=== PATIENT | male | born 1975 | race Caucasian/White ===

== ENCOUNTER 2017-12-26 07:02 | Emergency (ER) | payer BC ==
--- NOTE | 2017-12-26 07:34 | ERPHSYRPT ---
- History of Present Illness Source: patient, family Exam Limitations: no limitations Patient Subjective Stated Complaint: Patient got up this morning at 0430 and checked blood sugar, which read 289. Patient started driving to work and his vision was blurry and he states he didn't feel good and his left lower back started hurting. Triage Nursing Assessment: Patient ambulates into ER and transfers self to bed. Patient got up this morning at 0430 and checked blood sugar, which read 289. Patient started driving to work and his vision was blurry and he states he didn' t feel good and his left lower back started hurting. Patient states his vision is currently hazy. Patient states his left lower side of back is hurting 10/23. No bruising or abnormalities noted. Patient's blood sugar is 240. Patient recently had medication change last month of changing from Jardiance 25mg to Farsega 10mg, but was causing his lower back to hurt for two weeks so he stopped taking med. Timing/Duration: week(s) (1) Severity: mild Modifying Factors: Improves With: nothing Hx Tetanus, Diphtheria Vaccination/Date Given: Yes Hx Influenza Vaccination/Date Given: No Hx Pneumococcal Vaccination/Date Given: No Immunizations Up to Date: Yes <RAMONA STONER - Last Filed: 12/26/17 07:50> <ALIYAH AVILA - Last Filed: 12/26/17 09:11> - History of Present Illness Time Seen by Provider: 12/26/17 07:29 Physician History: The patient is a 41-year-old male with his complaining that today his vision started to become blurry as he was driving to work. He didn't feel well. His lower back began hurting again. 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 When someone moves in his field of vision, he feels like he is falling. He has diabetes and used to be on Farxiga but stopped taking it because his left back began to hurt. Now since he stopped taking his diabetic medicine, his blood glucose was elevated this morning to 289. 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 His past medical history is significant for diabetes, hypertension, and high cholesterol. (RAMONA STONER) Allergies/Adverse Reactions: Penicillins Allergy (Intermediate, Verified 07/10/13 02:22) Home Medications: Atorvastatin Calcium [Lipitor] 20 mg PO DAILY 12/26/17 [History] Losartan Potassium 50 mg [Cozaar 50 MG] 1 tablet PO DAILY 12/26/17 [ History] - Review of Systems Constitutional: No Fever, No Chills Eyes: No Symptoms Ears, Nose, & Throat: No Symptoms Respiratory: No Cough, No Dyspnea Cardiac: No Chest Pain, No Edema, No Syncope Abdominal/Gastrointestinal: No Abdominal Pain, No Nausea, No Vomiting, No Diarrhea Genitourinary Symptoms: No Dysuria Musculoskeletal: Back Pain Skin: No Rash Neurological: Dizziness Psychological: No Symptoms Endocrine: No Symptoms Hematologic/Lymphatic: No Symptoms Immunological/Allergic: No Symptoms All Other Systems: Reviewed and Negative <RAMONA STONER - Last Filed: 12/26/17 07:50> - Past Medical History Pertinent Past Medical History: No Neurological History: No Pertinent History ENT History: No Pertinent History Cardiac History: No Pertinent History Respiratory History: No Pertinent History Endocrine Medical History: No Pertinent History Musculoskeletal History: No Pertinent History GI Medical History: No Pertinent History History: No Pertinent History Psycho-Social History: No Pertinent History - Past Surgical History Past Surgical History: No Cardiac: No Pertinent History Respiratory: No Pertinent History Gastrointestinal: No Pertinent History Genitourinary: No Pertinent History Musculoskeletal: No Pertinent History Male Surgical History: No Pertinent History - Social History Smoking Status: Current every day smoker How long have you smoked: 30 years Exposure to second hand smoke: Yes Drug Use: none Patient Lives Alone: No Significant Family History: no pertinent family hx <RAMONA STONER - Last Filed: 12/26/17 07:50> - Physical Exam General Appearance: no apparent distress, alert Eye Exam: PERRL/EOMI, eyes nml inspection Ears, Nose, Throat Exam: normal ENT inspection, TMs normal, pharynx normal, moist mucous membranes Neck Exam: normal inspection, non-tender, supple, full range of motion Respiratory Exam: normal breath sounds, lungs clear, No respiratory distress Cardiovascular Exam: regular rate/rhythm, normal heart sounds, normal peripheral pulses Gastrointestinal/Abdomen Exam: soft, normal bowel sounds, No tenderness, No mass Rectal Exam: not done Back Exam: muscle spasm (left lumbar paraspinous) Extremity Exam: normal inspection, normal range of motion, pelvis stable Neurologic Exam: alert, oriented x 3, cooperative, normal mood/affect, nml cerebellar function, nml station & gait, sensation nml, No motor deficits Skin Exam: normal color, warm, dry, No rash Lymphatic Exam: No adenopathy SpO2 Interpretation: normal SpO2: 94 Oxygen Delivery: Room Air <RAMONA STONER - Last Filed: 12/26/17 07:50> - Nursing Vital Signs Nursing Vital Signs: Initial Vital Signs Temperature 97.9 F 12/26/17 07:08 Pulse Rate 81 12/26/17 07:08 Respiratory Rate 19 12/26/17 07:08 Blood Pressure 142/94 12/26/17 07:08 O2 Sat by Pulse Oximetry 94 L 12/26/17 07:08 Pain Scale Pain Intensity [Left Lower 6 Back] Pain Intensity 6 - Course Nursing assessment & vital signs reviewed: Yes EKG Interpreted by Me: RATE (82), Sinus Rhythm, NORMAL AXIS, NORMAL QRS <ALIYAH AVILA - Last Filed: 12/26/17 09:11> Ordered Tests: Active Orders 24 hr Category Date Time Status EKG-ER Only STAT Care 12/26/17 07:34 Active IV Insertion STAT Care 12/26/17 07:34 Active Orthostatic Vital Signs STAT Care 12/26/17 08:57 Active HEAD WITHOUT CONTRAST [CT] Stat Exams 12/26/17 07:35 Completed CBC W DIFF Stat Lab 12/26/17 07:50 Completed CMP Stat Lab 12/26/17 07:50 Completed CULTURE,URINE Stat Lab 12/26/17 08:39 Received LIPASE Stat Lab 12/26/17 07:50 Completed Lactic Acid Stat Lab 12/26/17 07:54 Completed TROPONIN Q3H Lab 12/26/17 07:50 Completed TROPONIN Q3H Lab 12/26/17 10:45 Ordered TROPONIN Q3H Lab 12/26/17 13:45 Ordered TROPONIN Q3H Lab 12/26/17 16:45 Ordered TROPONIN Q3H Lab 12/26/17 19:45 Ordered UA W/ MICROSCOPIC Stat Lab 12/26/17 08:39 Completed Medication Summary Generic Name Dose Route Start Last Admin Trade Name Freq PRN Reason Stop Dose Admin Hydrocodone Bitart/Acetaminophen 1 tab 12/26/17 09:06 [place] 5/325 Mg PO 12/26/17 09:07 STAT ONE Discontinued Medications Generic Name Dose Route Start Last Admin Trade Name Jose Juan PRN Reason Stop Dose Admin Sodium Chloride 1,000 mls @ 999 mls/hr 12/26/17 07:34 12/26/17 09:05 Sodium Chloride 0.9% 1000 Ml IV 12/26/17 08:34 Infused .Q1H1M STA Infusion Sodium Chloride Confirm 12/26/17 07:43 Sodium Chloride 0.9% 1000 Ml Administered 12/26/17 07:44 Dose 1,000 mls @ ud .ROUTE .STK-MED ONE Lab/Rad Data: Laboratory Result Diagrams 12/26/17 07:50 12/26/17 07:50 Laboratory Results 12/26/17 12/26/17 12/26/17 Range/Units 08:39 07:54 07:50 WBC (4.0-10.5) K/mm3 RBC (4.1-5.6) M/mm3 Hgb (12.5-18.0) gm/dl Hct (42-50) % MCV (78-100) fl MCH (26-32) pg MCHC (32-36) g/dl RDW (11.5-14.0) % Plt Count (150-450) K/mm3 MPV (6-9.5) fl Gran % (36.0-66.0) % Eos # (Auto) (0-0.5) Absolute Lymphs (auto) (1.0-4.6) Absolute Monos (auto) (0.0-1.3) Lymphocytes % (24.0-44.0) % Monocytes % (0.0-12.0) % Eosinophils % (0.00-5.0) % Basophils % (0.0-0.4) % Absolute Granulocytes (1.4-6.9) Basophils # (0-0.4) Sodium (137-145) mmol/L Potassium (3.5-5.1) mmol/L Chloride (98-107) mmol/L Carbon Dioxide (22-30) mmol/L Anion Gap (5-15) MEQ/L BUN (9-20) mg/dL Creatinine (0.66-1.25) mg/dL Estimated GFR ML/MIN Glucose (74-106) mg/dL Lactic Acid 1.4 (0.4-2.0) Calcium (8.4-10.2) mg/dL Total Bilirubin (0.2-1.3) mg/dL AST (17-59) U/L ALT (0-50) U/L Alkaline Phosphatase (38-126) U/L Troponin I < 0.012 (0.000-0.034) ng/mL Serum Total Protein (6.3-8.2) g/dL Albumin (3.5-5.0) g/dL Lipase (23-300) U/L Ur Collection Type CLEAN CATCH Urine Color YELLOW (YELLOW) Urine Appearance CLEAR (CLEAR) Urine pH 5.0 (5-6) Ur Specific [place] 1.025 (1.005-1.025) Urine Protein 30 (Negative) Urine Ketones NEGATIVE (NEGATIVE) Urine Blood 50 (0-5) Darion/ul Urine Nitrite NEGATIVE (NEGATIVE) Urine Bilirubin NEGATIVE (NEGATIVE) Urine Urobilinogen NORMAL (0-1) mg/dL Ur Leukocyte Esterase NEGATIVE (NEGATIVE) Urine Microscopic RBC 0-2 (0-2) /HPF Urine Microscopic WBC 0-2 (0-5) /HPF Ur Epithelial Cells FEW (FEW) /HPF Urine Bacteria FEW (NEGATIVE) /HPF Urine Mucus SLIGHT (NEGATIVE) /HPF Urine Culture Reflexed YES (NO) Urine Glucose 500 (NEGATIVE) mg/dL Specimen Received 12-26-17 0840 12/26/17 12/26/17 Range/Units 07:50 07:50 WBC 7.8 (4.0-10.5) K/mm3 RBC 6.10 H (4.1-5.6) M/mm3 Hgb 17.9 (12.5-18.0) gm/dl Hct 51.9 H (42-50) % MCV 85.1 (78-100) fl MCH 29.3 (26-32) pg MCHC 34.5 (32-36) g/dl RDW 14.4 H (11.5-14.0) % Plt Count 187 (150-450) K/mm3 MPV 9.2 (6-9.5) fl Gran % 70.5 H (36.0-66.0) % Eos # (Auto) 0.15 (0-0.5) Absolute Lymphs (auto) 1.61 (1.0-4.6) Absolute Monos (auto) 0.51 (0.0-1.3) Lymphocytes % 20.7 L (24.0-44.0) % Monocytes % 6.6 (0.0-12.0) % Eosinophils % 1.9 (0.00-5.0) % Basophils % 0.3 (0.0-0.4) % Absolute Granulocytes 5.47 (1.4-6.9) Basophils # 0.02 (0-0.4) Sodium 138 (137-145) mmol/L Potassium 4.5 (3.5-5.1) mmol/L Chloride 105 (98-107) mmol/L Carbon Dioxide 23 (22-30) mmol/L Anion Gap 15.6 H (5-15) MEQ/L BUN 20 (9-20) mg/dL Creatinine 0.68 (0.66-1.25) mg/dL Estimated GFR > 60.0 ML/MIN Glucose 227 H (74-106) mg/dL Lactic Acid (0.4-2.0) Calcium 9.1 (8.4-10.2) mg/dL Total Bilirubin 0.40 (0.2-1.3) mg/dL AST 14 L (17-59) U/L ALT 27 (0-50) U/L Alkaline Phosphatase 102 (38-126) U/L Troponin I (0.000-0.034) ng/mL Serum Total Protein 7.2 (6.3-8.2) g/dL Albumin 4.4 (3.5-5.0) g/dL Lipase 48 (23-300) U/L Ur Collection Type Urine Color (YELLOW) Urine Appearance (CLEAR) Urine pH (5-6) Ur Specific [place] (1.005-1.025) Urine Protein (Negative) Urine Ketones (NEGATIVE) Urine Blood (0-5) Darion/ul Urine Nitrite (NEGATIVE) Urine Bilirubin (NEGATIVE) Urine Urobilinogen (0-1) mg/dL Ur Leukocyte Esterase (NEGATIVE) Urine Microscopic RBC (0-2) /HPF Urine Microscopic WBC (0-5) /HPF Ur Epithelial Cells (FEW) /HPF Urine Bacteria (NEGATIVE) /HPF Urine Mucus (NEGATIVE) /HPF Urine Culture Reflexed (NO) Urine Glucose (NEGATIVE) mg/dL Specimen Received <RAMONA STONER - Last Filed: 12/26/17 07:50> - Progress Progress: unchanged Counseled pt/family regarding: lab results, diagnosis, need for follow-up, rad results <ALIYAH AVILA - Last Filed: 12/26/17 09:11> - Progress Progress Note: 12/26/17 07:50 Pt care discussed and care transferred to Dr Avila at 07:45. (RAMONA STONER) 12/26/17 09:05 PT STATES DIZZINESS GONE BUT HAS A MILD HEADACHE. ORTHOSTATIC VS NORMAL. BACK PAIN PRESENT BUT TOLERABLE (ALIYAH AVILA) <RAMONA STONER - Last Filed: 12/26/17 07:50> - Departure Time of Disposition: 09:07 Departure Disposition: Home Critical Care Time: No <ALIYAH AVILA - Last Filed: 12/26/17 09:11> - Departure Clinical Impression: Dizziness, Back pain Condition: Stable Referrals: MARK GALLARDO [Primary Care Provider] - Additional Instructions: DRINK PLENTY OF FLUIDS. TAKE YOUR MEDICATIONS PRESCRIBED. MONITOR YOUR BLOOD GLUCOSE CLOSELY. KEEP YOUR APPOINTMENT WITH YOUR PRIMARY CARE DOCTOR ON 12/29/17 Prescriptions: Hydrocodone/APAP 5/325 [[place] 5/325 mg] 1 each PO Q12H PRN PRN #5 tablet MDD 2 PRN Reason: Pain
[2017-12-26] MEDS ORDERED: Sodium Chloride 0.9% 1000 ML 1,000 ML ONE (07:43)
[2017-12-26] MEDS: Sodium Chloride 0.9% 1000 ML 1,000 ML IV STA (07:58)
[2017-12-26 08:01] VITALS: O2SAT 98
[2017-12-26 08:01] LABS: BASOPHIL % 0.3 % (0.0-0.4); Basophil (Absolute #) 0.02 (0-0.4); Eosinophil % 1.9 % (0.00-5.0); Eosinophil (Absolute #) 0.15 (0-0.5); Granulocyte Absolute (ANC) 5.47 (1.4-6.9); Granulocytes % 70.5 % (36.0-66.0); Hematocrit 51.9 % (42-50); Hemoglobin 17.9 gm/dl (12.5-18.0); Lymphocyte (Absolute #) 1.61 (1.0-4.6); Lymphocytes % 20.7 % (24.0-44.0); Mean Cell Volume 85.1 fl (78-100); Mean Corpuscular Hemoglobin 29.3 pg (26-32); Mean Corpuscular Hgb Concent. 34.5 g/dl (32-36); Mean Platelet Volume 9.2 fl (6-9.5); Monocyte (Absolute #) 0.51 (0.0-1.3); Monocytes % 6.6 % (0.0-12.0); Platelet Count 187 K/mm3 (150-450); Red Cell Distribution Width 14.4 % (11.5-14.0); White Blood Count 7.8 K/mm3 (4.0-10.5)
[2017-12-26 08:21] LABS: ALBUMIN 4.4 g/dL (3.5-5.0); ALKALINE PHOSPHATASE 102 U/L (38-126); ANION GAP 15.6 MEQ/L (5-15); BLOOD UREA NITROGEN 20 mg/dL (9-20); CHLORIDE 105 mmol/L (98-107); Calcium 9.1 mg/dL (8.4-10.2); Carbon Dioxide 23 mmol/L (22-30); Creatinine 1 0.68 mg/dL (0.66-1.25); Glucose 227 mg/dL (74-106); LIPASE 48 U/L (23-300); Potassium 4.5 mmol/L (3.5-5.1); SGOT/AST 14 U/L (17-59); SGPT/ALT 27 U/L (0-50); SODIUM 138 mmol/L (137-145); Total Protein 7.2 g/dL (6.3-8.2)
--- NOTE | 2017-12-26 08:40 | XRAY ---
Indication: Dizziness. No known injury. Multiple contiguous axial images obtained through the head without contrast. Comparison: July 10, 2013. Again normal appearing brain parenchyma, ventricles, and bony calvarium. Visualized paranasal sinuses and mastoid air cells are clear. Impression: Stable normal CT head without contrast exam. CT DI 65.67
[2017-12-26 08:48] LABS: Appearance CLEAR (CLEAR); Bilirubin NEGATIVE (NEGATIVE); Blood 50 Ery/ul (0-5); Glucose 500 mg/dL (NEGATIVE); Ketones NEGATIVE (NEGATIVE); Leukocyte Esterase NEGATIVE (NEGATIVE); Nitrite NEGATIVE (NEGATIVE); Protein,Urine Dip 30 (Negative); Specific Gravity 1.025 (1.005-1.025); Urobilinogen NORMAL mg/dL (0-1)
[2017-12-26 08:54] LABS: Bacteria FEW /HPF (NEGATIVE); Epithelial Cells FEW /HPF (FEW); Mucus SLIGHT /HPF (NEGATIVE); RBC 0-2 /HPF (0-2); WBC 0-2 /HPF (0-5)
[2017-12-26 09:05] VITALS: BP 157/96; PULSE 85
[2017-12-26] MEDS ORDERED: NORCO 5/325 MG ONE (09:15)
[2017-12-26] MEDS: NORCO 5/325 MG PO ONE (09:16)
== END 2017-12-26 09:45 | disposition home or self-care (01) ==
LOC: ED 07:02
DX: R42 Dizziness and giddiness (principal); M54.5 Low back pain; R51 Headache; I10 Essential (primary) hypertension; E11.9 Type 2 diabetes mellitus without complications; Z79.899 Other long term (current) drug therapy
CPT/HCPCS: 36000; 36415; 70450; 80053; 81000; 83036; 83605; 83690; 84484; 85025; 87086; 93005; 96360; 99284; A9270-GY

== ENCOUNTER 2020-12-08 10:20 | Emergency (ER) | payer BC ==
--- NOTE | 2020-12-08 10:49 | ERPHSYRPT ---
- History of Present Illness Source: patient Exam Limitations: other (Poor historian) Patient Subjective Stated Complaint: pt reports today while working he had an episode of cold sweats and mild headache. pt states recent issues with new diabetes medications and side effects r/t that. reports stomach cramping, nausea, excessive gas and belching. pt states his last dose of Ozempic was 12/02/20, states he is now taking Farxiga. Triage Nursing Assessment: pt is aox3, pupils perrl, afebrile, resps easy and non labored, radial pulses strong and equal, cap refill < 3 seconds, pt skin pink warm dry. abd soft non tender, bowel sounds present normoactive x4. Physician History: 44 yo wm w DM/HTN presents from work after developing diaphoresis. He has had chronic nausea/abdominal pain which he attributed to Ozempic which was stopped last week. Pt was seen last week at [place] [facility] for the nausea/abdominal pain. He denies CP/dyspnea/focal weakness /fever/cough/dysuria/hematuria/melena/hematochezia. Timing/Duration: today Severity: mild Modifying Factors: Improves With: nothing Associated Symptoms: nausea, abdominal pain, diaphoresis, headaches, loss of appetite, No vomiting, No shortness of breath, No heartburn, No cough, No chills, No chest pain, No fever, No malaise, No rash, No syncope, No seizure, No weakness Allergies/Adverse Reactions: Penicillins Allergy (Intermediate, Verified 12/08/20 10:43) Home Medications: Atorvastatin Calcium [Lipitor] 20 mg PO DAILY 12/26/17 [History] Losartan Potassium 50 mg [Cozaar 50 MG] 1 tablet PO DAILY 12/26/17 [History] Hx Tetanus, Diphtheria Vaccination/Date Given: Yes Hx Influenza Vaccination/Date Given: No Hx Pneumococcal Vaccination/Date Given: No Travel Risk - International Travel Have you traveled outside of the country in past 3 weeks: No - Coronavirus Screening Are you exhibiting any of the following symptoms?: No Close contact with a COVID-19 positive Pt in past 14-21 Days: No - Vaccine Status Have you recieved a Covid-19 vaccination: Yes Pharmacy Scheduler: [facility] - Vaccination Dates Date of 2cond Vaccination (if applicable): unk - Review of Systems Constitutional: No Symptoms, Chills Eyes: No Symptoms Ears, Nose, & Throat: No Symptoms Respiratory: No Symptoms Cardiac: No Symptoms Abdominal/Gastrointestinal: No Symptoms, Abdominal Pain, Nausea, No Vomiting, No Diarrhea, No Constipation, No Hematemesis, No Hematochezia, No Melena, No Dysphagia, No Appetite Changes Genitourinary Symptoms: No Symptoms Musculoskeletal: No Symptoms Skin: No Symptoms Neurological: No Symptoms Psychological: No Symptoms Endocrine: No Symptoms Hematologic/Lymphatic: No Symptoms Immunological/Allergic: No Symptoms - Past Medical History Pertinent Past Medical History: No Neurological History: No Pertinent History ENT History: No Pertinent History Cardiac History: No Pertinent History, Hypertension Respiratory History: No Pertinent History Endocrine Medical History: Diabetes Type II Musculoskeletal History: No Pertinent History GI Medical History: No Pertinent History History: No Pertinent History Psycho-Social History: No Pertinent History - Past Surgical History Past Surgical History: No Cardiac: No Pertinent History Respiratory: No Pertinent History Gastrointestinal: No Pertinent History Genitourinary: No Pertinent History Musculoskeletal: No Pertinent History Male Surgical History: No Pertinent History - Social History Smoking Status: Current every day smoker How long have you smoked: 30 years Exposure to second hand smoke: Yes Drug Use: none Patient Lives Alone: No Significant Family History: no pertinent family hx - Nursing Vital Signs Nursing Vital Signs: Initial Vital Signs Temperature 98.1 F 12/08/20 10:26 Pulse Rate 98 H 12/08/20 10:26 Respiratory Rate 18 12/08/20 10:26 Blood Pressure 129/85 12/08/20 10:26 O2 Sat by Pulse Oximetry 95 12/08/20 10:26 Pain Scale Pain Intensity 0 All WNL - Physical Exam General Appearance: no apparent distress, anxiety Eye Exam: PERRL/EOMI, eyes nml inspection Ears, Nose, Throat Exam: normal ENT inspection, TMs normal, pharynx normal, moist mucous membranes Neck Exam: normal inspection, non-tender, supple, full range of motion, No meningismus, No mass, No Brudzinski, No Kernig's, No carotid bruit Respiratory Exam: normal breath sounds, lungs clear, airway intact, No respiratory distress Cardiovascular Exam: regular rate/rhythm, normal heart sounds, normal peripheral pulses, No murmur Gastrointestinal/Abdomen Exam: soft, normal bowel sounds, tenderness (Mild epigastric ttp wo guarding or rebound) Back Exam: normal inspection, normal range of motion, No CVA tenderness, No vertebral tenderness Extremity Exam: normal inspection, normal range of motion Neurologic Exam: alert, oriented x 3, cooperative, analytical scientist II-XII nml as tested, normal mood/affect, nml cerebellar function, nml station & gait, sensation nml, No motor deficits, No sensory deficit Skin Exam: normal color, warm, dry, No rash Lymphatic Exam: No adenopathy SpO2 Interpretation: normal SpO2: 95 O2 Delivery: Room Air - Course EKG Interpreted by Me: RATE (NSR/R93/Normal QT-QTc/Low voltage/No acute ST-Twave changes) - CT Exams Abdomen/Pelvis CT Interpretation: Discussed w/radiologist (Mesenteric adenitis/TURCIOS/Splenomegaly) Ordered Tests: Active Orders 24 hr Category Date Time Status EKG-ER Only STAT Care 12/08/20 10:42 Completed IV Insertion STAT Care 12/08/20 10:42 Completed ABDOMEN AND PELVIS W/0 CONTRAS [CT] Stat Exams 12/08/20 14:26 Completed CHEST 1 VIEW (PORTABLE) Stat Exams 12/08/20 10:42 Completed CBC W DIFF Stat Lab 12/08/20 10:42 Completed CMP Stat Lab 12/08/20 11:48 Completed PROTIME WITH INR Stat Lab 12/08/20 11:49 Completed PTT Stat Lab 12/08/20 11:49 Completed TROPONIN Q3H Lab 12/08/20 11:48 Completed TROPONIN Q3H Lab 12/08/20 13:45 Completed UA W/RFX UR CULTURE Stat Lab 12/08/20 12:19 Completed Lab/Rad Data: Laboratory Result Diagrams 12/08/20 10:42 12/08/20 11:48 Laboratory Results 12/08/20 12/08/20 12/08/20 Range/Units 13:45 12:19 11:49 WBC (4.0-10.5) K/mm3 RBC (4.1-5.6) M/mm3 Hgb (12.5-18.0) gm/dl Hct (42-50) % MCV (78-100) fl MCH (26-32) pg MCHC (32-36) g/dl RDW (11.5-14.0) % Plt Count (150-450) K/mm3 MPV (7.5-11.0) fl Gran % (36.0-66.0) % Eos # (Auto) (0-0.5) Absolute Lymphs (auto) (1.0-4.6) Absolute Monos (auto) (0.0-1.3) Lymphocytes % (24.0-44.0) % Monocytes % (0.0-12.0) % Eosinophils % (0.00-5.0) % Basophils % (0.0-0.4) % Absolute Granulocytes (1.4-6.9) Basophils # (0-0.4) PT 12.9 H (9.4-12.5) SECONDS INR 1.09 (0.8-3.0) APTT 35.7 (25.1-36.5) SECONDS Sodium (137-145) mmol/L Potassium (3.5-5.1) mmol/L Chloride (98-107) mmol/L Carbon Dioxide (22-30) mmol/L Anion Gap (5-15) MEQ/L BUN (9-20) mg/dL Creatinine (0.66-1.25) mg/dL Estimated GFR ML/MIN Glucose (74-106) mg/dL Calcium (8.4-10.2) mg/dL Total Bilirubin (0.2-1.3) mg/dL AST (17-59) U/L ALT (0-50) U/L Alkaline Phosphatase (38-126) U/L Troponin I < 0.012 (0.000-0.034) ng/mL Serum Total Protein (6.3-8.2) g/dL Albumin (3.5-5.0) g/dL Urine Color YELLOW (YELLOW) Urine Appearance CLEAR (CLEAR) Urine pH 5.0 (5-6) Ur Specific [place] 1.021 (1.005-1.025) Urine Protein NEGATIVE (Negative) Urine Ketones NEGATIVE (NEGATIVE) Urine Blood NEGATIVE (0-5) Darion/ul Urine Nitrite NEGATIVE (NEGATIVE) Urine Bilirubin NEGATIVE (NEGATIVE) Urine Urobilinogen NEGATIVE (0-1) mg/dL Ur Leukocyte Esterase NEGATIVE (NEGATIVE) Urine WBC (Auto) NONE (0-5) /HPF Urine RBC (Auto) NONE (0-2) /HPF U Epithel Cells (Auto) NONE (FEW) /HPF Urine Bacteria (Auto) NONE (NEGATIVE) /HPF Urine Mucus (Auto) SLIGHT (NEGATIVE) /HPF Urine Culture Reflexed NO (NO) Urine Glucose >=500 (NEGATIVE) mg/dL 12/08/20 12/08/20 12/08/20 Range/Units 11:48 11:48 10:42 WBC 8.8 (4.0-10.5) K/mm3 RBC 6.64 H* (4.1-5.6) M/mm3 Hgb 19.4 H (12.5-18.0) gm/dl Hct 57.1 H (42-50) % MCV 86.0 (78-100) fl MCH 29.2 (26-32) pg MCHC 34.0 (32-36) g/dl RDW 14.1 H (11.5-14.0) % Plt Count 221 (150-450) K/mm3 MPV 9.4 (7.5-11.0) fl Gran % 63.2 (36.0-66.0) % Eos # (Auto) 0.30 (0-0.5) Absolute Lymphs (auto) 1.89 (1.0-4.6) Absolute Monos (auto) 1.01 (0.0-1.3) Lymphocytes % 21.6 L (24.0-44.0) % Monocytes % 11.5 (0.0-12.0) % Eosinophils % 3.4 (0.00-5.0) % Basophils % 0.3 (0.0-0.4) % Absolute Granulocytes 5.52 (1.4-6.9) Basophils # 0.03 (0-0.4) PT (9.4-12.5) SECONDS INR (0.8-3.0) APTT (25.1-36.5) SECONDS Sodium 137 (137-145) mmol/L Potassium 4.2 (3.5-5.1) mmol/L Chloride 101 (98-107) mmol/L Carbon Dioxide 21 L (22-30) mmol/L Anion Gap 19.7 H (5-15) MEQ/L BUN 20 (9-20) mg/dL Creatinine 0.85 (0.66-1.25) mg/dL Estimated GFR > 60.0 ML/MIN Glucose 119 H (74-106) mg/dL Calcium 9.7 (8.4-10.2) mg/dL Total Bilirubin 0.50 (0.2-1.3) mg/dL AST 27 (17-59) U/L ALT 30 (0-50) U/L Alkaline Phosphatase 87 (38-126) U/L Troponin I < 0.012 (0.000-0.034) ng/mL Serum Total Protein 8.2 (6.3-8.2) g/dL Albumin 5.0 (3.5-5.0) g/dL Urine Color (YELLOW) Urine Appearance (CLEAR) Urine pH (5-6) Ur Specific [place] (1.005-1.025) Urine Protein (Negative) Urine Ketones (NEGATIVE) Urine Blood (0-5) Darion/ul Urine Nitrite (NEGATIVE) Urine Bilirubin (NEGATIVE) Urine Urobilinogen (0-1) mg/dL Ur Leukocyte Esterase (NEGATIVE) Urine WBC (Auto) (0-5) /HPF Urine RBC (Auto) (0-2) /HPF U Epithel Cells (Auto) (FEW) /HPF Urine Bacteria (Auto) (NEGATIVE) /HPF Urine Mucus (Auto) (NEGATIVE) /HPF Urine Culture Reflexed (NO) Urine Glucose (NEGATIVE) mg/dL - Progress Progress Note: 12/08/20 13:59 Pt had CTA of chest/Ab/Pelvis 11/03/20 at [facility] TURCIOS-splenomegaly 12/08/20 20:08 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 Counseled pt/family regarding: lab results, diagnosis, need for follow-up, rad results - Departure Departure Disposition: Home Clinical Impression: Abdominal pain Condition: Stable Critical Care Time: No Referrals: DOCTOR,NO FAMILY [Primary Care Provider] - Instructions: Acute Abdomen (Belly Pain), Adult (DC) Additional Instructions: Follow up with your family MD and/or maintenance supervisor 2nd shift Start Prevacid or Nexium twice a day Bentyl as needed for pain Return to ER for increasing pain or temperature greater than 100.5 Prescriptions: Dicyclomine HCl [Bentyl] 20 mg PO Q6H PRN PRN #20 ampul PRN Reason: Abdominal pain Dicyclomine HCl 20 mg [Bentyl 20 mg] 20 mg PO Q6H PRN PRN #30 tablet PRN Reason: Pain
--- NOTE | 2020-12-08 11:12 | XRAY ---
Indication: Diaphoresis. Comparison: None Portable chest demonstrates normal heart and lungs. Bony thorax intact with mild degenerative changes.
[2020-12-08 11:55] LABS: Absolute Neutrophil Ct (ANC) 5.52 (1.4-6.9); BASOPHIL % 0.3 % (0.0-0.4); Basophil (Absolute #) 0.03 (0-0.4); Eosinophil % 3.4 % (0.00-5.0); Hematocrit 57.1 % (42-50); Hemoglobin 19.4 gm/dl (12.5-18.0); Lymphocyte (Absolute #) 1.89 (1.0-4.6); Lymphocytes % 21.6 % (24.0-44.0); Mean Corpuscular Hemoglobin 29.2 pg (26-32); Mean Platelet Volume 9.4 fl (7.5-11.0); Monocyte (Absolute #) 1.01 (0.0-1.3); Monocytes % 11.5 % (0.0-12.0); Neutrophil % 63.2 % (36.0-66.0); Platelet Count 221 K/mm3 (150-450); Red Blood Count 6.64 M/mm3 (4.1-5.6); Red Cell Distribution Width 14.1 % (11.5-14.0); White Blood Count 8.8 K/mm3 (4.0-10.5)
[2020-12-08 12:12] LABS: ALKALINE PHOSPHATASE 87 U/L (38-126); ANION GAP 19.7 MEQ/L (5-15); BLOOD UREA NITROGEN 20 mg/dL (9-20); CHLORIDE 101 mmol/L (98-107); Calcium 9.7 mg/dL (8.4-10.2); Carbon Dioxide 21 mmol/L (22-30); Creatinine 1 0.85 mg/dL (0.66-1.25); EST GLOMERULAR FILTRATION RATE > 60.0 ML/MIN; Glucose 119 mg/dL (74-106); Potassium 4.2 mmol/L (3.5-5.1); SGOT/AST 27 U/L (17-59); SGPT/ALT 30 U/L (0-50); SODIUM 137 mmol/L (137-145); Total Protein 8.2 g/dL (6.3-8.2)
[2020-12-08 12:12] LABS: INR 1.09 (0.8-3.0); PROTIME 12.9 SECONDS (9.4-12.5)
[2020-12-08 12:14] LABS: PTT 35.7 SECONDS (25.1-36.5)
[2020-12-08 12:39] LABS: Appearance CLEAR (CLEAR); Bilirubin NEGATIVE (NEGATIVE); Blood NEGATIVE Ery/ul (0-5); Glucose >=500 mg/dL (NEGATIVE); Ketones NEGATIVE (NEGATIVE); Leukocyte Esterase NEGATIVE (NEGATIVE); Mucus SLIGHT /HPF (NEGATIVE); Nitrite NEGATIVE (NEGATIVE); Protein,Urine Dip NEGATIVE (Negative); Specific Gravity 1.021 (1.005-1.025); Urobilinogen NEGATIVE mg/dL (0-1)
[2020-12-08 14:28] VITALS: BP 106/66; PULSE 80
--- NOTE | 2020-12-08 15:13 | XRAY ---
Indication: Abdomen pain 6 weeks. Multiple contiguous axial images obtained through the abdomen and pelvis without contrast. Comparison: None Lung bases clear. Heart not enlarged. Noncontrasted stomach and bowel loops appear nonobstructed. Subcentimeter appendicolith without appendicitis. Mild scattered colonic fecal debris throughout. No free fluid/air. Mid abdomen demonstrates tiny mesenteric nodes with minimal stranding favoring adenitis. Mild fatty hepatomegaly measuring 24 cm. Also 15.7 cm splenomegaly. Remaining liver, gallbladder, pancreas, spleen, adrenal glands, kidneys, ureters, bladder, and aorta are unremarkable for noncontrast exam. Osseous structures intact with mild degenerative changes throughout the thoracolumbar spine. Small fatty umbilical and small fatty bilateral hernias. Impression: 1. Minimal mid mesenteric adenitis. 2. Incidental mild fecal stasis, fatty hepatomegaly, splenomegaly, chronic bony findings, small fatty umbilical hernia, and small bilateral fatty inguinal hernias. 3. Remaining CT abdomen/pelvis without contrast exam is negative.
[2020-12-08 15:21] VITALS: O2SAT 95
== END 2020-12-08 15:45 | disposition home or self-care (01) ==
LOC: ED 10:20
DX: R10.9 Unspecified abdominal pain (principal)
CPT/HCPCS: 36415; 71045; 74176; 80053; 81001; 84484; 85025; 85610; 85730; 93005; 99284